=== PATIENT | male | born 1995 | race Caucasian/White ===

== ENCOUNTER 2022-02-23 21:02 | Emergency (ER) | payer SELFPAY ==
[~2022-02-23] VITALS: Ht 165.1 cm; Wt 83.0 kg
[2022-02-23 21:08] VITALS: BP 146/88
--- NOTE | 2022-02-23 21:16 | NUR ---
Patient ambulated to bed 3.
--- NOTE | 2022-02-23 21:20 | NUR ---
RECEIVED IN BED 3 WITH C/O POSSIBLE BUG BITE TO RIGHT LEG. BITE HAS BECOME RED AND SWOLLEN AND BLEEDING STARTED AT SITE TODAY. CONTINUES TO BLEED AT THIS TIME PMHx: DENIES
[2022-02-23] MEDS ORDERED: BACITRACIN OINT 500 UNITS/GM PKT TP ONE (21:45)
[2022-02-23] MEDS ORDERED: LIDOCAINE/EPI 1% 1:100000 20 ML VIAL INJ ONE (21:46)
[2022-02-23] MEDS ORDERED: LIDOCAINE 2% 1000 MG/50 ML VIAL INJ ONE (21:50)
--- NOTE | 2022-02-23 22:05 | NUR ---
DR RECINOS AT BEDSIDE
--- NOTE | 2022-02-23 22:45 | NUR ---
DR RECINOS PLACED SUTURES RIGHT LEG, SOME OOZING CONTINUES
[2022-02-23] MEDS ORDERED: DOPPLER MC ONE (23:22)
--- NOTE | 2022-02-23 23:25 | NUR ---
BLEEDING CONTROLLED TO RIGHT LEG. SURGICEL UTILIZED BY DR RECINOS. PEDAL PULSE IS PALPABLE AND CONFIRMED BY DOPPLER.
[2022-02-23 23:50] VITALS: BP 146/88
--- NOTE | 2022-02-23 23:50 | NUR ---
Patient discharged with v/s stable. Written and verbal after care instructions given and explained. Patient verbalized understanding. Ambulatory with steady gait. All questions addressed prior to discharge. Advised to follow up with PMD.
== END 2022-02-23 23:50 | disposition home or self-care (01) ==
LOC: MED 21:02
DX: S80.261A Insect bite (nonvenomous), right knee, initial encounter (principal); R58 Hemorrhage, not elsewhere classified; W57.XXXA Bitten or stung by nonvenomous insect and other nonvenomous arthropods, initial encounter; Y92.89 Other specified places as the place of occurrence of the external cause; Y93.89 Activity, other specified; Y99.8 Other external cause status
CPT/HCPCS: 12001; 99284; J2001; 99282